=== PATIENT | female | born 1985 | race Caucasian/White ===

== ENCOUNTER 2019-02-03 19:15 | Inpatient (IN) | payer BC ==
--- NOTE | 2019-02-03 19:53 | ED Physician Chart ---
ED Chief Complaint/HPI - Patient Information Date Seen:: 02/03/19 Time Seen:: 19:35 Chief Complaint:: numbness left arm History of Present Illness:: All night long 4 days ago patient had numbness of her left arm. The numbness subsided but recurred today. No trauma. Patient denies weakness of her left arm. Allergies:: Allergies Allergy/AdvReac Type Severity Reaction Status Date / Time No Known Allergies Allergy Verified 02/03/19 19:24 Vitals:: Vital Signs - 8 hr 02/03/19 19:15 Temp 99.8 F HR 129 RR 17 BP 147/87 O2 Sat % 99 Historian:: Patient Review:: Nurse's Note Reviewed ED Review of Systems - Review of Systems General/Constitutional: No fever, No chills, No weight loss, No weakness, No diaphoresis, No edema, No loss of appetite Skin: No skin lesions, No rash, No bruising Head: No headache, No light-headedness Eyes: No loss of vision, No pain, No diplopia ENT: No earache, No nasal drainage, No sore throat, No tinnitus Neck: No neck pain, No swelling, No thyromegaly, No stiffness, No mass noted Cardio Vascular: No chest pain, No palpitations, No PND, No orthopnea, No edema Pulmonary: No SOB, No cough, No sputum, No wheezing GI: No nausea, No vomiting, No diarrhea, No pain, No melena, No hematochezia, No constipation, No hematemesis G/U: No dysuria, No frequency, No hematuria Musculoskeletal: No bone or joint pain, No back pain, No muscle pain Endocrine: No polyuria, No polydipsia Psychiatric: No prior psych history, No depression, No anxiety, No suicidal ideation Hematopoietic: No bruising, No lymphadenopathy Allergic/Immuno: No urticaria, No angioedema Neurological: No syncope, Focal symptoms, Weakness, No paresthesia, No headache , No seizure, No dizziness, No confusion, No vertigo, Other (left arm numbness) ED Past Medical History - Past Medical History Past Medical History: No significant medical hx Family History: Diabetes Melitus, HTN Social History: Non Smoker, Other (occasional alcohol consumption) Surgical History: Psychiatricy History: None Medication: None Family Medical History - Family Member Mother History Unknown: Yes ED Physical Exam - Physical Examination General/Constitutional: Awake, Well-developed, well-nourished, Alert, No distress, GCS 15, Non-toxic appearing, Ambulatory Head: Atraumatic Eyes: Lids, conjuctiva normal, PERRL, EOMI Skin: Nl inspection, No rash, No skin lesions, No ecchymosis, Well hydrated, No lymphadenopathy ENMT: External ears, nose nl, Nasal exam nl, Lips, teeth, gums nl Neck: Nontender, No nuchal rigidity, No bruit, No mass, No stridor Other Neck comments:: Range of motion of the neck: 75 forward flexion; 60 extension; 35 rotation; 15 lateral flexion Respiratory: Nl effort/Exclusion, Clear to Auscultation, No Wheeze/Rhonchi/Rales Cardio Vascular: RRR, No murmur, gallop, rubs, NL S1 S2 GI: No tenderness/rebounding/guarding, No organomegaly, No hernia, Normal BS's, Nondistended, No mass/bruits, No McBurney tenderness : No CVA tenderness Extremities: No tenderness or effusion, Full ROM, normal strength in all extremities, No edema, Normal digits & nails Neuro/Psych: Alert/oriented, DTR's symmetric, Judgement/insight normal Other Neuro/Psych comments:: anxious; decreased left hand grasp; hypesthesia left arm Misc: Normal back, No paraspinal tenderness ED Labs/Radiology/EKG Results - Lab Results Results: Laboratory Tests 02/03/19 19:40 POC Glucose 93 ED Septic Shock - . Is Septic Shock (SBP<90, OR Lactate>4 mmol\L) present?: No - <6hrs of presentation: Vital Signs: Vital Signs - 8 hr 02/03/19 19:15 Temp 99.8 F HR 129 RR 17 BP 147/87 O2 Sat % 99 ED Reassessment (Disposition) - Diagnosis Diagnosis:: Laceration right thumb - Aftercare/Follow up Instructions Aftercare/Follow-Up Instructions:: Refer to Discharge Instructions - Patient Disposition Discharge/Transfer:: Home Condition at Disposition:: Stable, Unchanged
[2019-02-03 20:02] LABS: % BASOPHILS 0.6 % (0.0-2.0); % LYMPHOCYTES 31.7 % (20.0-50.0); % MONOCYTES 5.4 % (2.0-10.0); % NEUTROPHILS 61.3 % (40.0-80.0); EOSINOPHILE ABSOLUTE 0.1 Th/cmm (0.1-0.4); HEMATOCRIT 42.8 % (41.0-60); HEMOGLOBIN 14.4 gm/dL (12-16); LYMPHOCYTE ABSOLUTE 2.5 Th/cmm (1.5-3.0); MEAN CELL VOLUME 83.8 fl (81-100); MEAN CORPUSCULAR HEMOGLOBIN 28.1 pg (27.0-31.0); MEAN CORPUSCULAR HGB CONC 33.5 pg (28.0-36.0); MEAN PLATELET VOLUME 7.3 fl; MONOCYTE ABSOLUTE 0.4 Th/cmm (0.3-1.0); NEUTROPHILE ABSOLUTE 4.9 Th/cmm (1.8-8.0); PLATELET COUNT 307 Th/cmm (150-400); RED BLOOD COUNT 5.11 Mil/cmm (3.80-5.10); RED CELL DISTRIBUTION WIDTH 12.4 % (11.5-20.0); WHITE BLOOD COUNT 7.9 Th/cmm (4.8-10.8)
[2019-02-03 20:18] LABS: ANION GAP 16.1 (7.0-16.0); BUN - UREA NITROGEN 15 mg/dL (7-25); CALCIUM SERUM 10.7 mg/dL (8.6-10.3); CARBON DIOXIDE 24.2 mEq/L (21.0-31.0); CHLORIDE 100 mEq/L (98-107); CREATININE - SERUM 0.8 mg/dL (0.6-1.2); GFR AFRICAN-AMERICAN > 60.0 ml/min (>90); GFR NON AFRICAN-AMERICAN > 60.0 ml/min; GLUCOSE 102 mg/dL (70-105); POTASSIUM SERUM 3.3 mEq/L (3.5-5.1); SODIUM SERUM 137 mEq/L (136-145)
[2019-02-03] MEDS ORDERED: Potassium Chloride 20 mEq ER Tab PO ONE ×2 (20:30→20:34)
[2019-02-04 00:02] VITALS: BP 108/64
[2019-02-04 07:08] LABS: ALB/GLOB RATIO 1.7 (1.0-1.8); ALBUMIN 4.3 gm/dL (3.7-5.3); ALKALINE PHOSPHATASE 52 U/L (34-104); ANION GAP 10.2 (7.0-16.0); BILIRUBIN,TOTAL 0.5 mg/dL (0.3-1.0); BUN - UREA NITROGEN 13 mg/dL (7-25); CALCIUM SERUM 9.8 mg/dL (8.6-10.3); CHLORIDE 104 mEq/L (98-107); CHOLESTEROL 178 mg/dL (<200); CREATININE - SERUM 0.8 mg/dL (0.6-1.2); GFR AFRICAN-AMERICAN > 60.0 ml/min (>90); GFR NON AFRICAN-AMERICAN > 60.0 ml/min; GLUCOSE 100 mg/dL (70-105); HDL -HIGH DENSITY LIPOPROTEIN 52 mg/dL (23-92); MAGNESIUM 2.1 mg/dL (1.9-2.7); POTASSIUM SERUM 4.2 mEq/L (3.5-5.1); SGOT 18 U/L (13-39); SGPT/ALT 21 U/L (7-52); SODIUM SERUM 137 mEq/L (136-145); TOTAL PROTEIN,SERUM 6.8 gm/dL (6.0-8.3); TRIGLYCERIDES 71 mg/dL (<150)
--- NOTE | 2019-02-04 07:55 | Diagnostic Imaging Report ---
Cervical spine limited 2 views Indication: Left arm numbness Comparison: none Findings: Exam is limited due to body habitus. There is straightening of the cervical lordosis. No gross acute compression fracture or subluxation. Mild degenerative changes are noted. No prevertebral soft tissue swelling. Impression: Straightening of the cervical lordosis which may be due to positioning or muscle spasm. Mild generalized degenerative changes. Given clinical history, MRI may be obtained for further assessment. In the setting of trauma, if clinical symptoms persist and there is continued concern for an occult fracture, follow up exams in 5-7 days is suggested.
[2019-02-04 09:03] LABS: % BASOPHILS 0.4 % (0.0-2.0); % EOSINOPHILS 1.5 % (0.0-5.0); % LYMPHOCYTES 27.3 % (20.0-50.0); % MONOCYTES 7.7 % (2.0-10.0); % NEUTROPHILS 63.1 % (40.0-80.0); EOSINOPHILE ABSOLUTE 0.1 Th/cmm (0.1-0.4); HEMATOCRIT 40.2 % (41.0-60); HEMOGLOBIN 13.6 gm/dL (12-16); LYMPHOCYTE ABSOLUTE 1.6 Th/cmm (1.5-3.0); MEAN CELL VOLUME 84.3 fl (81-100); MEAN CORPUSCULAR HEMOGLOBIN 28.5 pg (27.0-31.0); MEAN CORPUSCULAR HGB CONC 33.7 pg (28.0-36.0); MEAN PLATELET VOLUME 8.1 fl; MONOCYTE ABSOLUTE 0.5 Th/cmm (0.3-1.0); NEUTROPHILE ABSOLUTE 3.8 Th/cmm (1.8-8.0); PLATELET COUNT 282 Th/cmm (150-400); RED BLOOD COUNT 4.76 Mil/cmm (3.80-5.10); RED CELL DISTRIBUTION WIDTH 11.9 % (11.5-20.0)
[2019-02-04 09:05] LABS: ESR SEDIMENTATION SED RATE 13 mm/hr (0-30)
--- NOTE | 2019-02-04 10:22 | History & Physical ---
ADMIT DATE: 02/04/2019 CHIEF COMPLAINT: Left arm numbness/paresthesias. HISTORY OF PRESENT ILLNESS: The patient is a 33-year-old female with no medical history who started experiencing left arm numbness from shoulder to fingers 4 days ago, gradually getting worse to the point that she decided to come to the ER last night given no improvement in her symptoms. She describes the feeling as numbness with a crawling feeling in the arm. She denies any similar previous episodes and denies any other symptomatology such as trauma, neck strain, headaches, blurry vision or double vision. Yesterday, she also complained of palpitations for the whole day, but denied any chest pain. Pertinent findings at the ED include a cervical spine x-ray showing straightening of the cervical lordosis, which may be due to positioning or muscle spasm. The patient has been admitted for further workup to the Med/Surg unit. PAST MEDICAL HISTORY: None. PAST SURGICAL HISTORY: One . FAMILY HISTORY: Diabetes, hypertension. SOCIAL HISTORY: Occasional alcohol. No tobacco products. She works in retail. She is with 4 kids. ALLERGIES: NKDA. OUTPATIENT MEDICATIONS: None. REVIEW OF SYSTEMS: CONSTITUTIONAL: No fever or chills. No recent weight loss. CARDIOVASCULAR: No palpitations, no chest pain. No angina type symptomatology. PULMONARY: No cough, phlegm production. GASTROINTESTINAL: No bowel habit changes. GENITOURINARY: No bladder habit changes. NEUROLOGIC: Please refer to HPI. The patient denies any headaches, double vision, blurry vision, any dizziness or angina, but she had a brief episode of dizziness yesterday, but denies any chronic dizziness. No mechanical falls. No vertigo-like symptoms. PHYSICAL EXAMINATION: VITAL SIGNS: Temperature 98.6, pulse 103, respirations 18, BP 102/52, satting 99% to 100% on room air. GENERAL: She is a well-developed, well-nourished female, awake, alert and oriented x 3, not in acute distress. HEAD AND NECK: Normocephalic, atraumatic. Pupils are reactive to light. Extraocular movements are intact. Oropharynx moist and clear. CARDIAC: Regular rate and rhythm without any murmurs. LUNGS: Clear to auscultation bilaterally. ABDOMEN: Soft, supple, nontender, nondistended, normoactive bowel sounds. EXTREMITIES: Lower extremities, there is no pedal edema. NEUROLOGIC: Grossly intact, nonfocal. Her cranial nerves 2-12 are within normal limits. Strength is somewhat limited on the left upper extremity -- likely 4/5, is present in comparison to the right upper extremity 5/5 (she is right handed). Sensation is decreased on the left upper extremity per the patient's account. LABORATORY DATA: CBC was within normal limits. Potassium was 3.3, otherwise within normal limits. Calcium was 10.7. LFTs within normal limits. TSH 4.99. DIAGNOSTICS: Please refer to the HPI. IMPRESSION: Left upper extremity paraesthesias. Differential includes cervical spine strain/muscle spasm versus other types of neuropathy. We will have to rule out multiple sclerosis in light of her symptoms. PLAN: The patient has been admitted to the medical/surgical floor for further management and care. The patient has been placed on Solu-Medrol, gabapentin, and I will add a low dose muscle relaxant and assess clinically. I have asked also for an MRI of the brain and cervical spine as well as neurology consult for further management and care. Her potassium has been repleted. JOB# [id number]
--- NOTE | 2019-02-05 10:12 | Diagnostic Imaging Report ---
MRI Brain without intravenous Contrast Indication: Paresthesias Comparison: none Technique: Multiplanar T1, T2, FLAIR, GRE and diffusion weighted images of the brain were obtained without intravenous contrast.. Findings: Images of the brain obtained without contrast demonstrate no evidence of an acute hemorrhage. There is no evidence of an acute infarction. Note, Exam is limited due to motion. The brain signal intensities are within normal limits for patient's age. No mass lesions identified. The bilateral cerebellopontine angles are patent. The vascular flow voids are preserved. The visualized paranasal sinuses are clear. IMPRESSION: No acute intracranial abnormality.
--- NOTE | 2019-02-05 10:15 | Diagnostic Imaging Report ---
MRA neck History: Paresthesias Comparison: None Technique/procedure: [id number] MRA sequences of the extracranial arterial vasculature was performed. Multiplanar reconstructions were made. Findings: The bilateral common carotid, carotid bulb, internal carotid arteries are patent. No evidence of significant focal stenosis. Slightly left dominant vertebral artery is noted. No evidence of any aneurysm or gross dissection. IMPRESSION: No evidence of hemodynamically significant vessel stenosis.
--- NOTE | 2019-02-05 10:20 | Diagnostic Imaging Report ---
MRI cervical spine without IV contrast HISTORY: Paresthesias, left arm numbness. History of migraines. COMPARISON: MRI brain the same day Technique: Multiplanar T1, T2, and STIR weighted sequences of the cervical spine were obtained without IV contrast. FINDINGS: Exam is limited due to motion. No evidence of an acute compression fracture or subluxation. There is slight decreased bone marrow signal. Assessment of the spinal cord is limited, however no obvious focal abnormality identified. There is probable 1 to 2 mm disc osteophyte complex at C6/C7 with mild spinal canal narrowing at this level. Assessment for neural foraminal narrowing is limited due to motion. No prevertebral soft tissue swelling. IMPRESSION: Markedly limited exam due to motion. There is probable minimal early degenerative changes at C6/C7 with 1 to 2 mm posterior disc osteophytic spurring causing mild spinal canal narrowing. Decreased bone marrow signal which is nonspecific and may be due to etiology such as smoking, anemia or other metabolic disorders. Myeloproliferative disorder is less likely, however clinical correlation is recommended.
--- NOTE | 2019-02-05 17:33 | Consultation ---
DATE OF CONSULTATION: 02/04/2019 NEUROLOGY CONSULTATION HISTORY OF PRESENT ILLNESS: The patient is a 33-year-old, complains of numbness in the left, started 4 years ago. The patient with not much neck pain. Numbness from the shoulder down. No definite radicular nerve pattern. The patient may have some weakness. No problem with the leg. Walking is okay. Speech is okay. PAST MEDICAL HISTORY: The patient is otherwise healthy. SURGERIES: . FAMILY HISTORY: Diabetes and hypertension. SOCIAL HISTORY: Does not smoke. She says occasional alcohol. ALLERGIES: None known. REVIEW OF SYSTEMS: Complained of palpitations. No headache. No problem with vision. Speech is normal. PHYSICAL EXAMINATION: VITAL SIGNS: Temperature 98.4, blood pressure 105/60, pulse is around 96. NECK: Supple. No neck bruits. HEART: Normal heart sounds. LUNGS: Clear. NEUROLOGIC: The patient is awake, alert. Speech is normal. Pupils react to light. Full eye movement, no nystagmus. No facial weakness. MOTOR: She will lift both arms up. No marked weakness. She will slight drift to the left side. The patient is able to squeeze on both sides. The patient's legs are equal. Again, slight drift on the left compared to the right. REFLEXES: About 2+ in upper extremity. Knees are about 2+ to 3, ankles 2. Normal plantar flexion of toes. Sensation she feels different, she says all the way from the shoulder down to the fingertips. Both anterior elbow, lateral and medial. INVESTIGATIONS: The patient had MRI brain normal. MRA is normal. The patient's cervical spine shows minimal DJD, no significant abnormalities. ASSESSMENT: The patient has paresthesia of left side. Unclear at the moment. No definite radicular or nerve pattern. The patient's MRI is completely normal of the brain and the cervical spine. At this time, the patient plan to discharge. Follows the patient with primary doctor and Neurology. JOB# [id number]
--- NOTE | 2019-02-08 22:10 | Discharge Summary ---
DATE OF DISCHARGE: 02/04/2019 ADMITTING DIAGNOSES: Left upper extremity paresthesias. Differential includes cervical spine strain/muscle spasm versus neuropathy versus multiple sclerosis. SECONDARY DIAGNOSIS: None. 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 Paresthesias secondary to DJD at C6-C7. A 2 mm posterior disk osteophytic spurring with mild spinal narrowing. CONSULTANTS: Dr. Cook, Neurology. MAJOR PROCEDURES: On 02/04/2019, brain MRI showing no acute intracranial abnormality. On 02/04/2019, head MRI with neck MRA showing no evidence of hemodynamically significant vessel stenosis. On 02/04/2019, cervical spine MRI. Please refer to the discharge diagnosis. BRIEF HOSPITAL COURSE: A 33-year-old female with no medical history who started experiencing left arm numbness with tingling from shoulder to fingers about 4 days prior to admission, gradually getting worse to the point that she decided to come into the ER, given non-improvement of her symptoms. She describes the feeling as a numbing feeling with a crawling sensation. She denied any previous history or any previous episodes. No history of trauma, neck strain, headaches, blurry vision or double vision. She also apparently had palpitations that could have been secondary to anxiety on the day prior to admission, but denied any chest pains. The patient had a cervical spine x-ray at the ER showing straightening of the cervical lordosis, which may be due to positioning or muscle spasm. There were mild generalized degenerative changes. The patient was admitted to the medical floor and was placed on supportive care including anti-inflammatories and IV steroids with improvement in her symptoms. She underwent the above-mentioned procedures and was seen by Neurology and given her improvement, she was cleared to be discharged home to self-care with close followup with her primary care doctor. MEDICATIONS ON DISCHARGE: Prednisone taper and Neurontin. [facility]# [id number]
== END 2019-02-04 19:55 | disposition home or self-care (01) | DRG 552 ==
LOC: ER 19:15 → MSI 23:19
PROVIDERS: ADMIT Internal Medicine; ATTEND Internal Medicine
DX: M47.812 Spondylosis without myelopathy or radiculopathy, cervical region (principal); G35 Multiple sclerosis; M40.40 Postural lordosis, site unspecified
CPT/HCPCS: 36415-UA; 70549-TC; 72040-TC; 72141-TC; 80048-TC; 80053-TC; 80061-TC; 81025-TC; 82948-90; 83036-90; 83735-TC; 84443-TC; 85025-TC; 85652-TC; 86141-TC; J2060; J2930; Z7610-TC